=== PATIENT | male | born 1970 | race Caucasian/White ===

== ENCOUNTER 2020-02-17 14:11 | Emergency (ER) | payer OTHER, SELFPAY ==
[2020-02-17 14:15] VITALS: BP 140/79; PULSE 77; TEMP 37; O2SAT 97
--- NOTE | 2020-02-17 14:25 | W.ED.GENAD ---
Discharge Plan Disposition Patient Disposition: HOME Condition: Stable Discharge Details Chief Complaint: Laceration Clinical Impression: Laceration of thumb, right Primary Care Provider: Carlos Chavez ED Provider: Geneva Castillo Home Meds and New Rx's Prescriptions: Continued ibuprofen 800 mg tablet 800 mg PO TID PRNRF: 0 naproxen 500 mg tablet 500 mg PO BID Qty: 30 RF: 0 acetaminophen [Acetaminophen Extra Strength] 500 MG tablet 1,000 mg PO TID PRN PRNQty: 120 RF: 0 Discharge Instructions Instructions: Laceration (ED) Additional Instructions: Sutures removed in 5 to 7 days. Watch for signs of infection including redness, swelling, red streaks or drainage. Return immediately if any signs of infection. Leave dressing in place for 12 to 24 hours, you may wash under running soap and water tomorrow. No soaking. Allow to air dry at least 1 to 2 hours a day. Keep clean and dry. Follow up with primary care provider in 3-5 days. Return to ED sooner if any worsening or concerns. Increase oral fluids. Please take Tylenol or Ibuprofen with food every 4-6 hours as needed for pain and swelling. Referrals: Carlos Chavez, [Primary Care Provider] - Medical Decision Making <Geneva Castillo - Last Filed: 02/17/20 16:21> 49-year-old male presents with right thumb laceration approximately 2 cm in size. This occurred approximately 30 minutes prior to arrival on a sawzall. Eating is controlled with pressure, patient has full range of motion noted to his thumb. Intact two-point discrimination. Last tetanus was 2013. Imaging obtained to rule out foreign body and fracture. No fracture or foreign body seen on imaging. Wound was extensively irrigated and soaked in chlorhexidine and sterile normal saline. Laceration was repaired as noted in procedure note above, anesthesia achieved with infiltration of 1% lidocaine without epi. Wound was repaired with 3 simple interrupted four-point 0 sutures, wound well approximated. Patient discussed home care and suture removal, verbalized understanding. Given strict return instructions to return if any signs of infection or concerns. Bacitracin applied and Band-Aid prior to discharge. <Mark Gage MD - Last Filed: 02/17/20 15:05> Patient seen, examined, and discussed with KAMILA Castillo. I agree with treatment plan as discussed/documented. HPI <Geneva Castillo - Last Filed: 02/17/20 16:21> General Mode of arrival: ambulatory. Date/Time Provider Initiated Documentation: 02/17/20 14:16. Limitations to Documentation: no limitations. Information obtained by: patient. HPI Narrative: 49-year-old male presents the right thumb laceration which was sustained prior to arrival with a sawzall. Patient has full range of motion noted to his digit. Intact two-point discrimination. Last tetanus shot was 2012. Laceration is approximately 2 cm in length and is jagged. Related Data Home Medications Medication Instructions Recorded Confirmed acetaminophen [Acetaminophen Extra 1,000 mg PO TID PRN PRN #120 tab 08/03/17 02/17/20 Strength] ibuprofen 800 mg tablet 800 mg PO TID PRN tab-cap 03/31/19 02/17/20 naproxen 500 mg tablet 500 mg PO BID #30 tab 05/09/19 02/17/20 Previous Rx's Medication Instructions Recorded acetaminophen [Acetaminophen Extra 1,000 mg PO TID PRN PRN #120 tab 08/03/17 Strength] naproxen 500 mg tablet 500 mg PO BID #30 tab 05/09/19 Allergies Allergy/AdvReac Type Severity Reaction Status Date / Time No Known Allergies Allergy Verified 02/17/20 14:18 General Stated Complaint: Laceration JOSS: 3 Review of Systems <Geneva Castillo - Last Filed: 02/17/20 16:21> Narrative: Constitutional: Negative for weight loss, alert and oriented, well groomed, normal body habitus, appears comfortable. HEENT: Denies trauma, headaches, blurry vision, nasal discharge, sore throat, trouble swallowing. Chest: Denies chest pain, palpitations, irregular rhythm, hypertension. Respiratory: Denies Shortness of breath, cough, hemoptysis. Skin: Laceration noted to the right thumb. Neuro: Denies dizziness, blurry vision, weakness, syncope, headache or facial numbness. Hematologic: Denies easy bruising, intolerance to heat or cold, hair loss. PFSH <Geneva Castillo - Last Filed: 02/17/20 16:21> Family History Mother No problems noted. Father No problems noted. Sister No problems noted. Brother No problems noted. Grandfather No problems noted. Grandfather No problems noted. Grandmother No problems noted. Grandmother Stroke Social History Smoking/Tobacco Use Status: Former Tobacco Use Alcohol Intake: current Alcohol Intake frequency: a few times a week Alcohol type: beer Drug use: Never Substance use type: does not use Do you feel safe at home: Yes Do you feel safe in your relationship?: Yes Exam <Geneva Castillo - Last Filed: 02/17/20 16:21> Narrative Exam Narrative: Constitutional: Alert and oriented x3. Appears stated age. Normal body habitus. Head: Normocephalic, no trauma. Chest: RRR, Normal S1, S2, distal pulses intact. Resp: Lungs clear to auscultation bilaterally, no wheezes, rales, or rhonchi. Musculoskeletal: Normal gait, 5/5 strength to all four extremities. Skin: No suspicious rashes or lesions. Capillary refill less than 2 sec. laceration noted to the palmar surface of the right thumb. Measures approximately 2 cm in length, edges are jagged. Full range of motion noted to thumb intact two-point discrimination noted. Course <Geneva Castillo - [facility] Filed: 02/17/20 16:21> Vital Signs Vital signs: Vital Signs Temperature 37.0 C 02/17/20 14:15 Pulse 77 02/17/20 14:15 Blood Pressure 140/79 02/17/20 14:15 Pulse Oximetry 97 02/17/20 14:15 Temperature 37.0 C 02/17/20 14:15 Temperature Source Temporal Artery Scan 02/17/20 14:15 Pulse 77 02/17/20 14:15 Respiratory Effort Non-Labored 02/17/20 14:17 Blood Pressure 140/79 02/17/20 14:15 Blood Pressure Position Sitting 02/17/20 14:15 Pulse Oximetry 97 02/17/20 14:15 Oxygen Delivery Method Room Air 02/17/20 14:15 Oxygen Flow Rate 0 02/17/20 14:15 Pain Level 3 02/17/20 14:22 Procedures <Geneva Castillo - [facility] Filed: 02/17/20 16:21> Laceration Laceration 1: Site: hand (thumb) Side (If applicable): right Size (cm): 2 Description: linear and irregular Depth: simple, single layer Local Anesthetic: Lidocaine 1% Amount of anesthesia used (mL): 1 Pre-repair: wound explored, irrigated extensively and deep structures intact Skin layer closed with: nylon Size (cm): 4-0 Number of sutures: 3 Technique: simple, interrupted
--- NOTE | 2020-02-17 14:35 | DI.RAD_ITS ---
EXAM: XR THUMB RT CLINICAL HISTORY: laceration. TECHNIQUE: 2D digital imaging was performed. COMPARISON: No exams were available for comparison FINDINGS: BONES: No definite acute fracture is identified. No bony destructive lesion is seen. JOINTS: No dislocation present. Mild hypertrophic changes are seen the metacarpophalangeal joint. SOFT TISSUE: No radiopaque foreign bodies are identified. IMPRESSION: No acute abnormality. DATA REPOSITORY: RADIATION DOSE DELIVERED:
[2020-02-17] MEDS: Lidocaine 1% Multi-Dose 50 ML VIAL IJ (14:56)
== END 2020-02-17 15:13 | disposition home or self-care (01) ==
LOC: ER 15:14
PROVIDERS: Emergency Provider Registered Nurse Emergency; PCP Emergency Medicine
DX: S61.011A Laceration without foreign body of right thumb without damage to nail, initial encounter (principal); W27.0XXA Contact with workbench tool, initial encounter
CPT/HCPCS: 12001; 73140

== ENCOUNTER 2021-07-20 01:19 | Outpatient (CLI) | payer OTHER, SELFPAY ==
--- NOTE | 2021-07-20 07:30 | DI.RAD_ITS ---
Exam(s) XR KNEE LT 3V AP,LAT,JOB EXAM: XR KNEE LT 3V AP,LAT,JOB CLINICAL HISTORY: knee pain,M25.562,M25.561,M25.569. TECHNIQUE: 2D digital imaging was performed of the left knee. Three images were obtained. AP, late ral and PA tunnel views were obtained. COMPARISON: CR XR KNEE RT 3V AP,LAT,JOB from 07/20/2021 FINDINGS: BONES: No acute fracture is present. No bony destructive lesion is seen. JOINTS: The knee is normally aligned. No joint effusion is seen. There is mild narrowing of the femor al tibial joint. Chondrocalcinosis is present. Periarticular spurring is seen in all 3 joint compar tments. SOFT TISSUE: Normal. IMPRESSION: Mild degenerative changes of the left knee. DATA REPOSITORY: RADIATION DOSE DELIVERED:
--- NOTE | 2021-07-20 07:30 | DI.RAD_ITS ---
Exam(s) XR KNEE RT 3V AP,LAT,JOB EXAM: XR KNEE RT 3V AP,LAT,JOB CLINICAL HISTORY: knee pain,M25.562,M25.561,M25.569. TECHNIQUE: 2D digital imaging was performed of the right knee. Three views obtained. AP, lateral an d PA tunnel views were obtained. COMPARISON: No exams were available for comparison FINDINGS: BONES: No acute fracture is present. No bony destructive lesion is seen. JOINTS: The knee is normally aligned. Small joint effusion. Chondrocalcinosis in the femoral tibial joints. Mild spurring of the posterior patella. SOFT TISSUE: Normal. IMPRESSION: Mild degenerative changes of the right knee. DATA REPOSITORY: RADIATION DOSE DELIVERED:
== END 2021-07-20 01:39 ==
PROVIDERS: PCP Emergency Medicine; Visit Provider Emergency Medicine
DX: M25.561 Pain in right knee (principal); M25.562 Pain in left knee; M17.0 Bilateral primary osteoarthritis of knee; G89.29 Other chronic pain; M25.461 Effusion, right knee
CPT/HCPCS: 73562

== ENCOUNTER 2022-04-10 07:33 | Day surgery (SDC) | payer OTHER, SELFPAY ==
--- NOTE | 2022-04-09 18:53 | W.ANESPRE ---
General Info Date of Service Date Performed: 04/10/22 Height: 6 ft 3 in Weight: 99.847 kg Body Mass Index (BMI): 27.5 Surgical Procedure: Operation Date: 04/10/22 09:05 Proposed Procedure Side Surgeon p Colonoscopy Brandy Willingham MD Meds Allergies and Home Medications Allergies Allergy/AdvReac Type Severity Reaction Status Date / Time No Known Allergies Allergy Verified 04/10/22 08:03 Home Medication Medication Instructions Recorded ibuprofen 800 mg tablet 800 mg PO Q8H #14 tabs 07/12/21 bisacodyl 5 mg tablet,delayed 5 mg PO ONCE #4 tabs 03/16/22 release (Dulcolax (bisacodyl)) polyethylene glycol 3350 17 17 g PO ONCE #238 grams 03/16/22 gram/dose oral powder Current Visit Medications: Current Medications Generic Name Dose Route Start Last Admin Trade Name Freq PRN Reason Stop Dose Admin Ringer's Solution 1,000 mls @ 80 mls/hr 04/10/22 06:00 IV 05/07/22 23:59 INFUSION JOSE IV Miscellaneous Supplies 1 each 04/10/22 06:00 Iv Access IV 05/07/22 23:59 DIRECTED JOSE Sodium Chloride 0 ml 04/10/22 06:00 Normal Saline Flush 10 Ml Syr IV 05/07/22 23:59 PRN PRN Sodium Chloride 0 ml 04/10/22 06:00 Normal Saline 10 Ml Vial IJ 05/07/22 23:59 DIRECTED PRN Sterile Water 0 ml 04/10/22 06:00 Water,Injection,Sterile 10 Ml Vial IJ 05/07/22 23:59 DIRECTED PRN PFSH Active Problems Active Problems: Problem Status Onset Code Screening for colon cancer Z12.11 Weight loss R63.4 Medical History Medical History Acute lateral meniscus tear of left knee (07/30/17) Bilateral chronic knee pain Bronchospasm Chondrocalcinosis of left knee Chondrocalcinosis of right knee Degenerative joint disease of right knee History of rectal fissure Left knee DJD Migraine headache Spasm of muscle of lower back Tinea versicolor Surgical History Surgical History History of dental surgery Hx of knee surgery Hx of shoulder surgery right Hx of thumb surgery Right Tobacco Smoking/Tobacco Use Status: Former Tobacco Use Passive smoking exposure: Yes Second hand exposure: Yes Alcohol Alcohol Intake: current Alcohol intake frequency: a few times a month Alcohol type: beer Substance Use Substance use: Never Substance use type: does not use Vital Signs and Lab Results Vital Signs Most Recent Vital Signs in EMR: Temp Pulse Resp BP Pulse Ox 36.2 C L 60 16 122/85 100 04/10/22 08:11 04/10/22 08:11 04/10/22 08:11 04/10/22 08:11 04/10/22 08:11 Lab Results Blood Type / Crossmatch: No Data to Display Complete Blood Count: No Data to Display Complete Metabolic Panel: No Data to Display Liver Function Panel: No Data to Display Coagulation Panel: No Data to Display Cardiac Panel: No Data to Display Arterial Blood Gas: No Data to Display Venous Blood Gas: No Data to Display Pancreas Panel: No Data to Display Thyroid Panel: No Data to Display Infectious Disease: No Data to Display Blood Cultures: No Data to Display Toxicology Panel: No Data to Display Anesthesia Assessment and Plan Anesthesia History Personal History: No History of Anesthesia Complications Family History: No Family History of Anesthesia Complications Exercise Tolerance Exercise Tolerance: Metabolic Equivalents>4 Cardiac & Pulmonary Exam Cardiac Exam: Normal S1/S2 Heart Sounds Pulmonary Exam: Clear Bilateral Breath Sounds Implantable Cardiac Device Does patient have a Pacemaker or an ICD?: No Airway Exam Known Difficult Airway: No Mallampati Class: 2 Mouth Opening: Normal (> 3cm) Thyromental Distance: Greater than 3 cm Neck Range of Motion: Full ROM Neck Circumference: Normal Teeth Condition: Normal Dentition ASA Classification ASA Score: ASA 2 Emergency Case?: No NPO Status NPO Status: NPO Clears >2 hours, Solids >8 hours Anesthesia Plan Resuscitation Status: Full Code Anesthesia Technique: General Anesthesia Airway Planned: Natural Airway Monitors Used: Standard Monitors Preoperative Comments:: 51 yo male for colo. Sig PMHx: former smoker, migraines. Previous Anes: LMA 5.
--- NOTE | 2022-04-10 06:20 | W.COLOREPORT ---
Colonoscopy Report Date of procedure: 04/10/22 Pre-op diagnosis general: Colon Cancer Screening Post-op diagnosis procedure note: other (one polyp) Procedure: Colonoscopy with polypectomy Surgeon: Brandy Willingham Anesthesia Type: General:No Airway Estimated blood loss (mL): 2 Pathology: other (transverse polyp) Complications: None Disposition: same day Indications: The patient is here for Colonoscopy pre-op. He has no family history of colon cancer. He has not had any bowel habit changes. -Discussed colonoscopy bowel prep as well as the procedure. Discussed possible complications of the procedure to include bleeding, pain, perforation, missed small lesion/polyp, sore throat, aspiration and adverse reaction to the medications. Questions were answered to patient?s satisfaction. No guarantees were implied or given.? Prep: Miralax/Dulcolax Procedure Start Time: :02 Procedure End Time: :18 Retraction Time: 8 minutes Findings: One small polyp Procedure Description: After informed consent was obtained the patient was taken to the procedure room and placed in a left decubitous position. Monitors were applied and a time out was done. The patients name, date of , procedure, allergies to medications and metal in their body was reviewed. The patient was then sedated. Once sedated and comfortable a rectal exam was done. External exam was normal. Internal exam revealed a normal sphincter tone and no palpable masses. The prostate felt smooth and slightly enlarged. The scope was then introduced and retro-flexed. No internal hemorrhoids, polyps or masses were identified on retro-flexion. The scope was then advanced to the cecum without difficulty. The ileocecal vlave and appendiceal orifice were identified. The prep was adequate. The scope was then slowly retracted over 8 minutes back into the rectum. Polyps were removed with cold forceps in the Transverse colon. There was no diverticulosis noted. The scope was removed and the patient was woken up and taken back to Same day surgery in stable condition. The patient tolerated the procedure well and there were no immediate complications. Follow up: The patient should follow up in 5 years unless they develop changes in bowel habits or other new gastrointestinal complaints.
--- NOTE | 2022-04-10 06:21 | W.PM.DSUDISC ---
Discharge Plan Disposition Patient Disposition: HOME Condition: Good Discharge Details Reason For Visit: colon cancer screening Attending Provider: Brandy Willingham Primary Care Provider: Ta Paulino Home Meds and New Rx's Prescriptions: Continued ibuprofen 800 mg tablet 800 mg PO Q8H Qty: 14 2RF Rx Instructions: Take 1 tablet at onset of migraine headache. Discontinued bisacodyl [Dulcolax (bisacodyl)] 5 mg tablet,delayed release (DR/EC) 5 mg PO ONCE Qty: 4 0RF Rx Instructions: Take according to provider's instructions for colonoscopy prep. polyethylene glycol 3350 17 gram/dose powder 17 g PO ONCE Qty: 238 0RF Rx Instructions: To be taken as directed by prescriber's office for colonoscopy prep. Discharge Instructions Instructions: Colorectal Polyps (DC) Additional Instructions: Findings: One polyp Follow up: 5 years Please call if you develop: fevers >101.5 Nausea or Vomiting Abdominal pain that is not transient Rectal bleeding that is more then a tbsp A hard abdomen and inability to pass gas DAY SURGERY UNIT POST ENDOSCOPY INSTRUCTIONS Instructions for everyone who is given Anesthesia: For your safety, please do the following for the next 24 Hours: a. Do not drive or operate dangerous equipment b. Do not drink alcohol beverages or use any recreational drugs for the first 24 hours or while taking pain medications. The medications in your body may have a reaction that can be dangerous. c. Do not make any important decisions or sign any important papers 1. Generally there are no restrictions on your activity after a day or so has gone by, but you may feel a bit fatigued for a few days. 2. After you arrive home you may have a light meal and return to a normal diet as you can tolerate it without feeling sick to your stomach. 3. After surgery, you may feel pain or discomfort. This should be only transient, but if it persists please contact your doctor. 4. If there are any questions regarding the findings of your procedure, please feel free to contact your doctor. 6. If you are unable to contact your doctor with a problem, contact the hospital at [phone]. 7. Continue all your regular medications unless directed otherwise. I understand the above instructions and have no questions. Signature of Patient or Responsible Adult Escort Date/Time Name of Responsible Adult Escort Signature of Nurse Date/Time Activity:: Activity as Tolerated Diet:: As Tolerated Discharge Orders Discharge Orders: Discharge Order (Routine); Ordered 04/10/22 Ordered By: Brandy Willingham
[2022-04-10 08:11] VITALS: BP 122/85; PULSE 60; RESP 16; TEMP 36.2; O2SAT 100
[2022-04-10 08:23] VITALS: BMI 27.5
[2022-04-10] MEDS: Lactated Ringers 1,000 ML 80 ML IV (08:30)
--- NOTE | 2022-04-10 09:14 | BOWEL_PTH ---
PATIENT: James Balderrama JR LOC: [facility] U#:[id number] AGE/SX: 51/M ROOM: RE04/10/[address]: Brandy Willingham MD : 1970 BED: DIS: 04/10/2022 SPEC #: [id number] RECD: 04/10/22 10:43 STATUS: MARY JANE REQ #: [id number] PAULINA: 04/10/22 09:[address]: Brandy Willingham DEPT: Surgical Specimen RECD BY: Kassie Herrera ENTERED: 04/10/22 10:44 SP TYPE: Bowel OTHR DR: Ta Paulino, KAMILA Tissues: 1 - BIOPSY BOWEL Procedures: GROSS AND MICRO LEVEL 4 Comments: [id number]
[2022-04-10 09:25] VITALS: BP 98/66; PULSE 53; RESP 15; TEMP 36.6; O2SAT 98
--- NOTE | 2022-04-10 09:32 | W.ANESPOSTOP ---
Postoperative Evaluation Date, Time and Location Date Performed: 04/10/22 Time Performed: 09:33 Patient Location: Day Surgery Unit Vital Signs Most Recent Imported Vital Signs: Most Recent Vital Signs Temp Pulse Resp BP Pulse Ox 36.6 C 53 L 15 98/66 L 98 04/10/22 09:25 04/10/22 09:25 04/10/22 09:25 04/10/22 09:25 04/10/22 09:25 Pain Score Most Recent Pain Score: Most Recent Pain Score Pain Level 0 04/10/22 08:11 Assessment Mental Status: Awake (Alert & Oriented to Patient Baseline) Airway and Respiratory Function: Patent airway with normal (patient baseline) respiratory exam Cardiovascular Function: Hemodynamically Stable Hydration Status: Adequately Hydrated Nausea & Vomiting: No Nausea or Vomiting Pain: Pt. Denies Any Pain Peripheral Nerve Block: Patient did not receive a nerve block
[2022-04-10 09:54] VITALS: BP 117/87; PULSE 59; RESP 16; TEMP 36.2; O2SAT 99
== END 2022-04-10 10:24 | disposition home or self-care (01) ==
PROVIDERS: PCP Nurse Practitioner Family; Visit Provider Surgery
PROC: 0DJD8ZZ Inspection of Lower Intestinal Tract, Via Natural or Artificial Opening Endoscopic (ICD-10-PCS; CPT 45378; principal; 2022-04-10 09:00)
DX: Z12.11 Encounter for screening for malignant neoplasm of colon (principal); K63.5 Polyp of colon
CPT/HCPCS: 45380; 88305

== ENCOUNTER → 2023-10-15 16:02 | Outpatient (CLI) | payer OTHER, SELFPAY ==
--- NOTE | 2023-10-15 12:34 | DI.RAD_ITS ---
Exam(s) XR TOE RT GREAT EXAM: XR TOE RT GREAT CLINICAL HISTORY: ? fracture, rt toe pain, M79.674. TECHNIQUE: 2D digital imaging was performed. COMPARISON: CR from 07/15/2017 FINDINGS: BONES: No acute fracture is present. No bony destructive lesion is seen. JOINTS: No dislocation present. Minimal degenerative changes 1st MTP joint SOFT TISSUE: Normal. IMPRESSION: No evidence of acute fracture, dislocation, or subluxation. DATA REPOSITORY: RADIATION DOSE DELIVERED:
== END ==
PROVIDERS: PCP Nurse Practitioner Family; Visit Provider Family Medicine
DX: M79.674 Pain in right toe(s) (principal)
CPT/HCPCS: 73660

== ENCOUNTER 2023-10-15 16:30 | Outpatient (CLI) | payer OTHER, SELFPAY ==
[2023-10-15 13:33] LABS: Calculated LDL 129 mg/dL (<100); Cholesterol 193 mg/dL (<200); HDL Cholesterol 53 mg/dL (40-60); Triglyceride 57 mg/dL (<150)
== END 2023-10-15 16:31 | disposition home or self-care (01) ==
LOC: LBO 16:30
PROVIDERS: PCP Nurse Practitioner Family; Visit Provider Family Medicine
DX: Z13.220 Encounter for screening for lipoid disorders (principal); Z13.1 Encounter for screening for diabetes mellitus
CPT/HCPCS: 36415; 80061; 83036

== ENCOUNTER 2024-11-06 14:31 | Outpatient (CLI) | payer OTHER, SELFPAY ==
--- NOTE | 2024-11-06 08:45 | DI.RAD_ITS ---
Exam(s) XR KNEE LT 4V AP,LAT,JOB,PAT EXAM: XR KNEE LT 4V AP,LAT,JOB,PAT CLINICAL HISTORY: knee pain. TECHNIQUE: 2D digital imaging was performed. Three views. COMPARISON: CR XR KNEE LT 3V AP,LAT,JOB from 07/20/2021 FINDINGS: BONES: No acute fracture is present. No bony destructive lesion is seen. Spurring from the femoral condyles and tibial plateaus. Spurring at the articular aspect of the patella. Spurring at the fem oral intercondylar notch and tibial spines. JOINTS: The knee is normally aligned. No joint effusion is seen. Mild narrowing of the medial femoral tibial joint. SOFT TISSUE: Normal. IMPRESSION: [id number] degenerative changes. DATA REPOSITORY: RADIATION DOSE DELIVERED:
--- NOTE | 2024-11-06 08:45 | DI.RAD_ITS ---
Exam(s) XR KNEE RT 4V AP,LAT,JOB,PAT EXAM: XR KNEE RT 4V AP,LAT,JOB,PAT CLINICAL HISTORY: knee pain. TECHNIQUE: 2D digital imaging was performed. Three views. COMPARISON: CR XR KNEE RT 3V AP,LAT,JOB from 07/20/2021 FINDINGS: BONES: No acute fracture is present. No bony destructive lesion is seen. Mild spurring from the fem oral condyles and tibial plateaus, increasing from prior exam. Mild spurring at the tibial spines. JOINTS: The knee is normally aligned. The joint spaces are maintained. No joint effusion is seen. Chondrocalcinosis. Mild to moderate spurring at the articular aspect of the patella. SOFT TISSUE: Normal. IMPRESSION: Mild degenerative changes and chondrocalcinosis. DATA REPOSITORY: RADIATION DOSE DELIVERED:
== END 2024-11-06 14:32 | disposition home or self-care (01) ==
LOC: DIORS 14:33
PROVIDERS: PCP Nurse Practitioner Family; Visit Provider Physician Assistant
DX: M17.0 Bilateral primary osteoarthritis of knee (principal)
CPT/HCPCS: 73564

== ENCOUNTER 2025-03-30 02:07 | Outpatient (CLI) | payer OTHER, SELFPAY ==
[2025-03-30 11:03] LABS: HCT 45.9 % (40.0-50.0); HGB 15.1 g/dL (13.5-17.5); MCHC 32.9 % (32.0-36.0); MCV 91 fL (80-95); MPV 10.9 fL (8.0-11.0); Platelet Count 156 10^3/uL (130-400); RBC 5.03 10^6/uL (4.36-5.78); RDW 12.2 % (11.8-14.1); RDW-SD 40.4 fL; WBC 4.29 10^3/uL (4.4-10.8)
[2025-03-30 11:26] LABS: Anion Gap 8.4 mmol/L (3-11); BUN 15 mg/dL (7-18); CO2 29.6 mmol/L (21.0-32.0); Chloride 104 mmol/L (98-107); Estimated GFR 89.44 (mL/min/1.73m2); Glucose 78 mg/dL (74-106); Potassium 4.2 mmol/L (3.5-5.1); Sodium 142 mmol/L (136-145)
== END 2025-03-30 02:08 | disposition home or self-care (01) ==
LOC: LBO 02:07 → LBN 10:52
PROVIDERS: PCP Nurse Practitioner Family; Visit Provider Student in an Organized Health Care Education/Training Program
DX: M17.0 Bilateral primary osteoarthritis of knee (principal); Z01.818 Encounter for other preprocedural examination
CPT/HCPCS: 80048; 85027

== ENCOUNTER 2025-03-30 09:58 | Outpatient (CLI) | payer OTHER, SELFPAY ==
--- NOTE | 2025-03-30 09:15 | DI.RAD_ITS ---
Exam(s) XR STANDING ALIGNMENT EXAM: XR STANDING ALIGNMENT CLINICAL HISTORY: PRE OP BILAT TKAs. TECHNIQUE: 2D digital imaging was performed. Standing AP views were performed from the pelvis through the ankles. COMPARISON: CR XR KNEE LT 4V AP,LAT,JOB,PAT from 11/06/2024 CR XR KNEE RT 4V AP,LAT,JOB,PAT from 11/06/2024 FINDINGS: BONES: No acute fracture is present. No bony destructive lesion is seen. Leg length discrepancy: No significant overall leg length discrepancy. JOINTS: Knees: Degenerative changes of both knees with periarticular spurring throughout. The ankle joints are unremarkable. The hip joints are unremarkable. SOFT TISSUE: Normal. IMPRESSION: Degenerative changes both knee. No significant leg length discrepancy. DATA REPOSITORY: RADIATION DOSE DELIVERED:
== END 2025-03-30 09:59 | disposition home or self-care (01) ==
LOC: DIORS 09:59
PROVIDERS: PCP Nurse Practitioner Family; Visit Provider Student in an Organized Health Care Education/Training Program
DX: M17.0 Bilateral primary osteoarthritis of knee (principal)
CPT/HCPCS: 77073

== ENCOUNTER 2025-04-08 06:01 | Day surgery (SDC) | payer SELFPAY ==
[2025-04-08] VITALS (23 sets, daily range): BP systolic 81–135; BP diastolic 46–98; PULSE 50–95; RESP 10–24; TEMP 36.2–36.6; O2SAT 97–100; BMI 29.1
--- NOTE | 2025-04-08 06:29 | ANES.PREOP_ITS ---
General Info Date of Service Date Performed: 04/08/25 Height: 6 ft 3 in Weight: 105.7 kg Body Mass Index (BMI): 29.1 Surgical Procedure: Operation Date: 04/08/25 07:50 Proposed Procedure Side Surgeon p Knee Total Arthroplasty Bilateral Bilateral Patricio Jeff MD Meds Allergies and Home Medications Allergies Allergy/AdvReac Type Severity Reaction Status Date / Time No Known Allergies Allergy Verified 04/08/25 06:29 Home Medication ?Medication ?Instructions ?Recorded meloxicam 15 mg tablet 15 mg PO DAILY #90 tabs 03/01 11/25 Current Visit Medications: Current Medications Generic Name Dose Route Start Last Admin Trade Name Freq PRN Reason Stop Dose Admin Acetaminophen 1,000 mg 04/08/25 06:00 Acetaminophen 500 Mg Tab PO 04/08/25 23:59 PREOP JOSE Celecoxib 400 mg 04/08/25 06:00 Celecoxib 200 Mg Cap PO 04/08/25 23:59 PREOP JOSE Gabapentin 300 mg 04/08/25 06:00 Gabapentin 300 Mg Cap PO 04/08/25 23:59 PREOP JOSE Ringer's Solution 1,000 mls @ 80 mls/hr 04/08/25 06:00 IV 04/08/25 23:59 INFUSION JOSE Cefazolin Sodium/Dextrose 2 gm in 50 mls @ 100 mls/hr 04/08/25 06:00 Ancef Duplex IVPB 04/08/25 23:59 PREOP JOSE Tranexamic Acid/Sodium Chloride 1,000 mg in 100 mls @ 600 mls/hr 04/08/25 06:00 IVPB 04/08/25 23:59 PREOP JOSE Tranexamic Acid/Sodium Chloride 1,000 mg in 100 mls @ 600 mls/hr 04/08/25 06:00 IVPB 04/08/25 23:59 DIRECTED JOSE IV Miscellaneous Supplies 1 each 04/08/25 06:00 Iv Access IV 04/08/25 23:59 DIRECTED JOSE Sodium Chloride 0 ml 04/08/25 06:00 Normal Saline Flush 10 Ml Syr IV 04/08/25 23:59 PRN PRN Sodium Chloride 0 ml 04/08/25 06:00 Normal Saline 10 Ml Vial IJ 04/08/25 23:59 DIRECTED PRN Sterile Water 0 ml 04/08/25 06:00 Water,Injection,Sterile 10 Ml Vial IJ 04/08/25 23:59 DIRECTED PRN PFSH Active Problems Active Problems: Problem Status Onset Code Toe pain, right Acute M79.674 Osteoarthritis of both knees Chronic M17.0 Migraine headache Chronic G43.909 Bilateral chronic knee pain Acute M25.561, M25.562, G89.29 Tubular adenoma of colon Acute D12.6 Medical History Medical History History of rectal fissure Chondrocalcinosis of left knee Chondrocalcinosis of right knee Degenerative joint disease of right knee Left knee DJD Tinea versicolor Bronchospasm Spasm of muscle of lower back Acute lateral meniscus tear of left knee (07/30/17) Surgical History Surgical History History of colonoscopy (~03/2022) History of dental surgery Hx of shoulder surgery right Hx of knee surgery Hx of thumb surgery Right Tobacco Smoking/Tobacco Use Status: Former Tobacco Use Passive smoking exposure: Yes Second hand exposure: Yes Alcohol Alcohol Intake: current Alcohol intake frequency: holidays/special occasions only Alcohol type: beer Substance Use Substance use: Never Substance use type: does not use Details: alcohol: t-5 Vital Signs and Lab Results Vital Signs Most Recent Vital Signs in EMR: Most Recent Vital Signs Temp Pulse Resp BP Pulse Ox 36.5 C 69 18 123/90 98 04/08/25 06:00 04/08/25 06:00 04/08/25 06:00 04/08/25 06:00 04/08/25 06:00 Lab Results Complete Blood Count: WBC, (4.4-10.8) 4.29 10^3/uL L 03/30/25, 10:25 RBC, (4.36-5.78) 5.03 10^6/uL 03/30/25, 10:25 Hgb, (13.5-17.5) 15.1 g/dL 03/30/25, 10:25 Hct, (40.0-50.0) 45.9 % 03/30/25, 10:25 Plt Count, (130-400) 156 10^3/uL 03/30/25, 10:25 Complete Metabolic Panel: Sodium, (136-145) 142 mmol/L 03/30/25, 10:25 Potassium, (3.5-5.1) 4.2 mmol/L 03/30/25, 10:25 Chloride, (98-107) 104 mmol/L 03/30/25, 10:25 Carbon Dioxide, (21.0-32.0) 29.6 mmol/L 03/30/25, 10 :25 BUN, (7-18) 15 mg/dL 03/30/25, 10:25 Creatinine, (0.70-1.30) 1.0 mg/dL 03/30/25, 10:25 Est GFR (CKD-EPI 2020), (mL/min/1.73m2) 89.44 03/30/25, 10:25 Calcium, (8.5-10.1) 9.0 mg/dL 03/30/25, 10:25 Glucose, (74-106) 78 mg/dL 03/30/25, 10:25 Anesthesia Assessment and Plan Anesthesia History Personal History: No History of Anesthesia Complications Family History: No Family History of Anesthesia Complications Exercise Tolerance Exercise Tolerance: Metabolic Equivalents>4 Pertinent Negatives Pertinent Negatives: No Symptoms of GERD Cardiac & Pulmonary Exam Cardiac Exam: Normal S1/S2 Heart Sounds Pulmonary Exam: Clear Bilateral Breath Sounds Implantable Cardiac Device Does patient have a Pacemaker or an ICD?: No Airway Exam Known Difficult Airway: No Mallampati Class: 2 Mouth Opening: Normal (> 3cm) Thyromental Distance: Greater than 3 cm Neck Range of Motion: Full ROM Neck Circumference: Normal Teeth Condition: Normal Dentition ASA Classification ASA Score: ASA 2 Emergency Case?: No NPO Status NPO Status: NPO Clears >2 hours, Solids >8 hours Anesthesia Plan Resuscitation Status: Full Code Anesthesia Technique: Spinal Anesthesia Airway Planned: Natural Airway Pain Management: Surgeon and patient request nerve block Monitors Used: Standard Monitors
[2025-04-08] MEDS: Gabapentin 300 MG CAP PO (06:34)
[2025-04-08] MEDS: Acetaminophen 500 MG TAB 1000 MG PO (06:34)
[2025-04-08] MEDS: Celecoxib 200 MG CAP 400 MG PO (06:35)
[2025-04-08] MEDS: Lactated Ringers 1,000 ML 80 ML IV (06:47)
--- NOTE | 2025-04-08 07:16 | PDOC.DSDIS_ITS ---
Date of service: 04/08/25 Discharge Plan Disposition Patient Disposition: Home Condition: Good Discharge Details Reason For Visit: B/L TKR Attending Provider: Patricio Jeff Primary Care Provider: Ta Paulino Home Meds and New Rx's Prescriptions: New meloxicam 15 mg tablet 15 mg PO DAILY Qty: 30 2RF aspirin 81 mg tablet,delayed release (DR/EC) 81 mg PO BID Qty: 60 0RF acetaminophen 500 mg tablet 1,000 mg PO TID Qty: 90 3RF pantoprazole 40 mg tablet,delayed release (DR/EC) 40 mg PO DAILY Qty: 14 0RF dexamethasone 4 mg tablet 4 mg PO DAILY Qty: 2 0RF docusate sodium 100 mg capsule 100 mg PO BID PRNQty: 28 0RF gabapentin 300 mg capsule 300 mg PO QHS Qty: 14 0RF oxycodone 5 mg tablet 5 mg PO Q4H PRNQty: 18 0RF Continued meloxicam 15 mg tablet 15 mg PO DAILY Qty: 90 2RF Rx Instructions: Take one tablet daily for inflammation and pain Discharge Instructions Additional Instructions: Total Knee Discharge Instructions Activity: The most important activity is to walk and to work on gentle motion (both flexion and extension). You should try to take short walks a few times a day. It is important that when resting you work on keeping the knee straight. Avoid putting a pillow behind the knee as this will encourage flexion. Work on range of motion exercises as provided by Physical Therapy. - Start outpatient physical therapy within 2 weeks. - You should wear the LOUIE hose on both legs for 2 weeks. You may remove these at night. You may also use any compression sock in place of the LOUIE hose. - Utilize [employer] to review exercises, see videos on exercises and obtain basic information pertaining to your surgery and your recovery. Dressing: Remove the Brando wrap by 2 days after your surgery and put on the LOUIE stocking given to you from the hospital. Keep the surgical dressing (underneath the BRANDO wrap) in place for at least one week. After the first week it may be removed and replaced with light gauze and tape or nothing. The wound and dressing may get wet after 3 days but avoid soaking the dressing or otherwise it will need to be changed. Many people prefer covering the dressing with cling wrap (saran wrap) to minimize it from getting soaked. If it gets wet, just pat dry. If it starts to peel off then it will need to be changed. Medications: - You should take Tylenol and anti-inflammatory meloxicam as your primary pain control medications. - You have been prescribed a stronger pain medication Oxycodone for breakthrough pain, take as needed as prescribed. - You have also been prescribed a stomach acid reduction agent Pantoprozole to help reduce stomach acid and reflux. - You have been prescribed Gabapentin to take at night for restlessness and nerve pain. - You will be taking Aspirin 81mg twice a day for DVT prevention unless instructed otherwise. - You have also been prescribed Decadron to take to control post-operative nausea and pain. You will start this tomorrow. - If you have constipation you should take Colace or Miralax (both [id number]). It takes most people 3-4 days to have a bowel movement. Follow-up: 2 weeks If you have any acute concerns or questions, please do not hesitate to contact the office at [phone]. You may contact Dr. Jeff with any questions after hours through the hospital at [phone] or on his cell phone at [phone]. Referrals: Patricio Jeff MD [ [facility] STAFF PHYSICIAN, Orthopaedic Surgical] Equipment/Supplies: Walker Activity:: Activity as Tolerated Shower/Bathe:: 72 hours Diet:: As Tolerated Discharge Orders Discharge Orders: Discharge Order (Routine); Ordered 04/08/25 Ordered By: Wilber Swartz DS: Diagnosis Discharge Diagnosis (1) Osteoarthritis of both knees: Status: Chronic
[2025-04-08] MEDS: ceFAZolin 2 GM/50 ML BAG IVPB (07:40)
[2025-04-08] MEDS: TRANEXAMIC ACID/SOD. CHL. 1,000 MG/100 ML BAG 600 MG IVPB ×2 (08:00→09:09)
--- NOTE | 2025-04-08 08:17 | W.ANESNERVE ---
Nerve Block Single Injection Procedure Date and Time Date Performed: 04/08/25 Procedure Start: : Location Where Procedure Performed Procedure Location: Day Surgery Unit Reason Performed: Postoperative Analgesia Requesting Provider: Patricio Jeff Timeout Performed Timeout Performed: Yes Monitoring Used ECG, Blood Pressure, SpO2 and See EMR for corresponding vital signs Sterility Sterility: Hand Hygiene, Surgical Cap, Surgical Mask, Sterile Gloves, Eye Protection and Chlorhexidine Sedation Given During Procedure Sedation Given (Indicate Dose Given): Versed IV Dose:: 3mg IVP Patient Mental Status Patient Mental Status: Sedate with meaningful communication Nerve Block 1st Nerve Block: Laterality: Left Block Type: Adductor Canal Ultrasound Image Saved?: Yes Needle / Catheter Used: 100mm SonoPlex II Local Anesthetic Bolus (Indicate Dose Given): Lidocaine used for local infiltration of skin, Bupivacaine 0.25% Dose:: 0.25%/10cc (25mg) and Exparel Dose:: 1.33%/10cc (133mg) Additives (Indicate Dose Given): Epinephrine to make 1:200,000 (5mcg/ml) (Added to 0.25% Bup.) Dose:: 50mcg Ultrasound: Sterile probe cover and gel used Nerve Stimulator: Not Used Paresthesia: None Procedure Tolerated: No Complications and Patient tolerated well Procedure Outcome: Successful Performed By: Fausto Andrade 2nd Nerve Block: Laterality: Right Block Type: Adductor Canal Ultrasound Image Saved?: Yes Needle / Catheter Used: 100mm SonoPlex II Local Anesthetic Bolus (Indicate Dose Given): Lidocaine used for local infiltration of skin, Bupivacaine 0.25% Dose:: 0.25%/10cc (25mg) and Exparel Dose:: 1.33%/10cc (133mg) Additives (Indicate Dose Given): Epinephrine to make 1:200,000 (5mcg/ml) (Added to 0.25% Bup.) Dose:: 50mcg Ultrasound: Sterile probe cover and gel used Nerve Stimulator: Not Used Paresthesia: None Procedure Tolerated: No Complications and Patient tolerated well Procedure Outcome: Successful Performed By: Fausto Andrade
[2025-04-08] MEDS: fentaNYL 100 MCG/2 ML VIAL IVP (10:57)
--- NOTE | 2025-04-08 11:46 | ROE_ITS ---
Operative Note Operative Note PRE-OP DIAGNOSIS: Bilateral Knee Arthritis POST-OP DIAGNOSIS: same PROCEDURE: Bilateral Knee Arthroplasty SURGEON: Patricio Jeff HUB CUTTER APPRENTICE: Sharita Swartz ANESTHESIA TYPE: Spinal Refer to Anesthesia Record ESTIMATED BLOOD LOSS: 350 PATHOLOGY: none sent COMPLICATIONS: None Patient was transported to: PACU Patient's condition: stable Implants: LEFT: 1. Depuy Attune Cementless Cruciate Retaining Femoral Component, Size 9 2. Depuy Attune Cementless Fixed Bearing Tibial Component, Size 10 3. Depuy Attune 9x6 CR/FB Poly RIGHT: 1. Depuy Attune Cementless Cruciate Retaining Femoral Component, Size 9 2. Depuy Attune Cementless Fixed Bearing Tibial Component, Size 10 3. Depuy Attune 9x6 CR/FB Poly Indications: I have seen Yony in clinic for symptoms of knee arthritis, confirmed with radiographic findings. He has exhausted nonoperative methods and was having significant limitations in daily function and desired better function and less pain. I discussed the technical details of a knee replacement. I explained the risks of the procedure to include, but not limited to, bleeding, infection, pain, stiffness, fracture, damage to nerves and vessels, damage to muscles and tendons, loosening, need for repeat procedure, blood clot and cardiopulmonary demise. Despite these risks, he elected to proceed. Findings: There was significant arthritis throughout both knees. Procedure Description: Yony was greeted in the preoperative holding area where the correct side was identified and marked. The consent was reviewed with the patient and signed. The history and physical was updated. All questions were answered. Preoperative medications were administered: Acetaminophen 1000mg, Celebrex 400mg, and Gabapentin 300mg. An adductor canal block was then administered by the anesthesia team in the [facility]. He was taken back to the operating room. A spinal anesthestic was then administered. The patient was placed into the supine position on the operating room table. A nonsterile tourniquet was placed high onto the leg but only used for cementing. Posts were placed for positioning during the procedure. All bony prominences were well padded. Prophylactic antibiotics in the form of Cefazolin were administered. 1g of Tranxemic Acid was given intravenously within 30 minutes of incision. Both legs were then prepped with Chloraprep and draped in a standard fashion with impervious stockinette. A second prep with Chloraprep was performed prior to application of Iodine impregnated skin protection. A timeout to confirm correct identity, side and site, procedure, allergies, anesthesia, and medical concerns was performed. LEFT KNEE: With the knee in some flexion, a midline incision was made overlying the knee. Full thickness skin flaps were raised once the extensor mechanism was encountered. These were raised medially and laterally. Any bleeding was controlled with electrocautery. Once the extensor mechanism was fully exposed, a medial parapatellar arthrotomy was performed in a flexed position. All bleeding from the arthrotomy and the geniculate arteries was coagulated. A medial subperiosteal peel was performed with electrocautery to the midcoronal plane. The fat pad was removed while keeping the patellar tendon protected. The anterior distal femur synovium was removed for later visualization. The ACL and PCL were resected and the anterior horn of the lateral meniscus was transected. The knee was then flexed with the patella everted. Large osteophytes from the tibia were removed. Large osteophytes from the femur were removed. Using a step drill, and based on preoperative templating, the femoral canal was entered. This was done with a step drill without any difficulty. The intramedullary distal femoral cut guide was inserted, set to a 5 degree valgus cut and 9mm cut thickness. The distal femoral cut guide was then held in position and pinned. With the soft tissues protected, the distal cut was pe rformed. This was passed over a few times to ensure a planar cut. I then turned attention to the tibia. The extramedullary guide was placed onto the leg. The distal aspect was slid medial to adjust for position of center of ankle and stay in line with shaft of the tibia. Approximately 3-5 degrees of posterior slope was kept in the proximal cutting guide. The center of the guide was aligned with the PCL. The stylus was used to assess cut thickness. The medial side, most involved side, was set for a 6mm cut. This was then held in position and pinned into place with 2 additional pins and a cross pin for stability. The medial and lateral collateral ligaments were protected and the cut was performed. With this completed, it was assessed and noted to be of appropriate dimensions. The guide was removed. A spacer block was inserted and the knee was brought into extension. The 6mm spacer block provided full extension, without hyperextension and with stability of both the medial and lateral collateral ligaments was assessed. The pins from the femur and the tibia were then removed. The distal femur was then sized. The anterior stylus was placed onto the lateral ridge of the anterior femur. This indicated a size 9 femur. The external rotation of the guide was adjusted to 3 degrees to match the epicondylar axis, perpendicular to [place]?s line. The 4-in-1 cutting guide was the placed. The posterior medial femur cut was evaluated and appeared of good thickness. The spacer block was inserted underneath the cutting guide and due to some slight laxity in this position, which was balance, I did move the guide posteriorly 1.5 mm. The spacer block was reinserted and stability was confirmed in 90 degrees of flexion. An wendy wing was used to confirm appropriate position of the anterior cut to avoid notching. This cutting guide was ensured to be flush on the cut surface and then pinned into place with headed pins. While protecting the soft tissues, quad tendon, and collateral ligaments, the anterior and posterior cuts were performed with a saw. The central two pins were removed and the posterior and anterior chamfers were cut next. The notch-cutting guide was placed. This was pinned to lateralize the femoral component as much as possible while keeping it flush on the cut surface. This was then pinned into position. A reciprocating saw was used to make the notch cut. A rasp smoothed the cut surfaces. The medial and lateral menisci were removed. A trial femoral component was then inserted, impacted down to the cut surfaces, and the lug holes were drilled. A provisional trial tibial component was placed and the knee was brought through range of motion. There was noted to be excellent extension and flexion. There was no significant instability. The patella was tracking without thumbs. A size 6mm polyethylene component provided the best range of motion and stability with less than 2mm gapping with medial and lateral stress and full extension without significant hyperextension. The tibial cut surface was fully exposed. The tibia was then sized as a 10. The tibia had been previously marked during trialing to correspond to the center of the tibial component to help with rotation. The trial was aligned to this sharita, approximately rotated to the medial 1/3rd of the tibial tubercle. The trial was pinned into place. The tibia was prepared with a reamer and a keel punch and lug holes. The trial components were removed. The final components were opened on the back table. The periosteal and capsular tissues, especially posteriorly, around the knee were then systematically injected with a periarticular cocktail consisting of 246mg of Ropivacaine, 0.5mg of Epinephrine, 0.08mg of Clonidine, and 30mg of Ketorolac, diluted to 100cc. The cementless knee components were placed. Starting with the tibial component, the tibia was subluxed anteriorly and the lug holes of the component were lined up. The tibia was then impacted with an impactor and mallet until the tibial component was in contact with the tibia. The final polyethylene component was inserted. Then, the femoral component was inserted. The lug holes were aligned and the component was impacted into position. The knee was irrigated with Surgiphor Betadine solution. This was allowed to sit in the knee for 3 minutes and then it was irrigated out with saline. The capsule was then reapproximated with a No. 1 Vicryl at multiple locations. The capsule was finally closed with a No. 2 Stratafix, barbed suture. The second dosing of 1g TXA was started. Deep tissues were then reapproximated with 0 Vicryl and 2-0 Vicryl. The skin was closed with a running 3-0 Monocryl in a subcuticular fashion. The wound was covered and the final dressing was placed at the end of the contralateral side. RIGHT KNEE: With the knee in some flexion, a midline incision was made overlying the knee. Full thickness skin flaps were raised once the extensor mechanism was encountered. These were raised medially and laterally. Any bleeding was controlled with electrocautery. Once the extensor mechanism was fully exposed, a medial parapatellar arthrotomy was performed in a flexed position. All bleeding from the arthrotomy and the geniculate arteries was coagulated. A medial subperiosteal peel was performed with electrocautery to the midcoronal plane. The fat pad was removed while keeping the patellar tendon protected. The anterior distal femur synovium was removed for later visualization. The ACL and PCL were resected and the anterior horn of the lateral meniscus was transected. The knee was then flexed with the patella everted. Large osteophytes from the tibia were removed. Large osteophytes from the femur were removed. Using a step drill, and based on preoperative templating, the femoral canal was entered. This was done with a step drill without any difficulty. The intramedullary distal femoral cut guide was inserted, set to a 5 degree valgus cut and 9mm cut thickness. The distal femoral cut guide was then held in position and pinned. With the soft tissues protected, the distal cut was performed. This was passed over a few times to ensure a planar cut. I then turned attention to the tibia. The extramedullary guide was placed onto the leg. The distal aspect was slid medial to adjust for position of center of ankle and stay in line with shaft of the tibia. Approximately 3-5 degrees of posterior slope was kept in the proximal cutting guide. The center of the guide was aligned with the PCL. The stylus was used to assess cut thickness. The medial side, most involved side, was set for a 6mm cut. This was then held in position and pinned into place with 2 additional pins and a cross pin for stability. The medial and lateral collateral ligaments were protected and the cut was performed. With this completed, it was assessed and noted to be of appropriate dimensions. The guide was removed. A spacer block was inserted and the knee was brought into extension. The 6mm spacer block provided full extension, without hyperextension and with stability of both the medial and lateral collateral ligaments was assessed. The pins from the femur and the tibia were then removed. The distal femur was then sized. The anterior stylus was placed onto the lateral ridge of the anterior femur. This indicated a size 9 femur. The external rotation of the guide was adjusted to 3 degrees to match the epicondylar axis, perpendicular to [place]?s line. The 4-in-1 cutting guide was the placed. Similar to the contralateral side, the cutting block was moved posteriorly 1.5 mm. The spacer block was inserted underneath the cutting guide and stability was confirmed in 90 degrees of flexion. An wendy wing was used to confirm appropriate position of the anterior cut to avoid notching. This cutting guide was ensured to be flush on the cut surface and then pinned into place with headed pins. While protecting the soft tissues, quad tendon, and collateral ligaments, the anterior and posterior cuts were performed with a saw. The central two pins were removed and the posterior and anterior chamfers were cut next. The notch-cutting guide was placed. This was pinned to lateralize the femoral component as much as possible while keeping it flush on the cut surface. This w as then pinned into position. A reciprocating saw was used to make the notch cut. A rasp smoothed the cut surfaces. The medial and lateral menisci were removed. A trial femoral component was then inserted, impacted down to the cut surfaces, and the lug holes were drilled. A provisional trial tibial component was placed and the knee was brought through range of motion. There was noted to be excellent extension and flexion. There was no significant instability. The patella was tracking without thumbs. A size 6mm polyethylene component provided the best range of motion and stability with less than 2mm gapping with medial and lateral stress and full extension without significant hyperextension. The tibial cut surface was fully exposed. The tibia was then sized as a 10. The tibia had been previously marked during trialing to correspond to the center of the tibial component to help with rotation. The trial was aligned to this sharita, approximately rotated to the medial 1/3rd of the tibial tubercle. The trial was pinned into place. The tibia was prepared with a reamer and a keel punch and lug holes. The trial components were removed. The final components were opened on the back table. The periosteal and capsular tissues, especially posteriorly, around the knee were then systematically injected with a periarticular cocktail consisting of 246mg of Ropivacaine, 0.5mg of Epinephrine, 0.08mg of Clonidine, and 30mg of Ketorolac, diluted to 100cc. On the back table, with the implants opened, the cement was mixed. One batch of high viscosity cement was prepared with vacuum assistance. After the cement was ready a small amount was placed on the cut surface of the patella and the patellar button was clamped into position and held. While the cement was hardening, the cementless knee components were placed. Starting with the tibial component, the tibia was subluxed anteriorly and the lug holes of the component were lined up. The tibia was then impacted with an impactor and mallet until the tibial component was in contact with the tibia. The final polyethylene component was inserted. Then, the femoral component was inserted. The lug holes were aligned and the component was impacted into position. The knee was irrigated with Surgiphor Betadine solution. This was allowed to sit in the knee for 3 minutes and then it was irrigated out with saline. The capsule was then reapproximated with a No. 1 Vicryl at multiple locations. The capsule was finally closed with a No. 2 Stratafix, barbed suture. Deep tissues were then reapproximated with 0 Vicryl and 2-0 Vicryl. The skin was closed with a running 3-0 Monocryl in a subcuticular fashion. Both incisions were then reinforced with skin glue and Exofin mesh. A Mepilex silver dressing was applied along with a [id number] SAI wrap to both knees. A CryoCuff was applied. Yony was transferred to the hospital bed without difficulty an suffering no apparent complication. He has a good prognosis. Physical therapy will start today and without restrictions, weight-bearing as tolerated. Aspirin 81mg BID will be used for DVT prophylaxis. Date of Procedure: 04/08/25
[2025-04-08] MEDS: oxyCODONE 5 MG TAB PO (12:05)
--- NOTE | 2025-04-08 12:40 | IN_ITS ---
PT Notes Visit Reasons: B/L TKR Physical Therapy Day Surgery Initial Evaluation Date: 04/08/2025 Referring Doctor: [] PT Orders: PT CONSULT: [] Precautions: [] Patient Profile/Admitting Diagnosis: [] PMHX: Osteoarthritis of both knees (Chronic) Most recent Depo-Medrol injection: 11/06/2024Migraine headache (Chronic) RarelyBilateral chronic knee pain (Acute) Tubular adenoma of colon (Acute) Medical History (Updated 01/05/25 @ 14:56 by Delmi Jarrett) History of rectal fissure Chondrocalcinosis of left knee Chondrocalcinosis of right knee Degenerative joint disease of right knee Left knee DJD Tinea versicolor Bronchospasm Spasm of muscle of lower back Acute lateral meniscus tear of left knee (07/30/17) Surgical History (Updated 04/18/22 @ 14:01 by Sabina Sanchez RN) History of colonoscopy (~03/2022) History of dental surgery Hx of shoulder surgery rightHx of knee surgery Hx of thumb surgery Right Social History/Home Situation: Patient resides in single-family home with his with ramp to enter. Patient utilizes 4 wheeled walker for ambulation and transfers. He reports independent [employer]s provides transportation and meals. Patient independent med management with a pillbox. Equipment Owned/DME: Four-wheel walker, 2 scooters, grab bar near the toilet, lift assist chair Subjective: Patient reports feeling stronger however still weak. States he is coughing less. Reports wound under Brando wrap to right lower extremity wound is located on his [place] per patient. Objective: [] General Observation: Patient presents reclined in chair with bilateral lower extremities externally rotated IV infusing right anterior chest. Right lower extremity Brando wrapped. Mental Status: Alert and oriented x 4, cooperative, pleasant, agreeable to participate in evaluation. Pain: ROM: [] Right Upper Extremity: [] Left Upper Extremity: [] Right Lower Extremity: [] Left Lower Extremity: [] Strength: [] Right Upper Extremity: [] Left Upper Extremity: [] Right Lower Extremity: [] Left Lower Extremity: [] Sensation: [] Bed Mobility/Transfers: [] Supine to sit [] Sit to stand [] Stand to sit [] Bed to chair [] Gait: [] Balance: [] Static Sitting: [] Dynamic Sitting: [] Static Standing: [] Dynamic Standing: [] Special Tests: [] Mobility Limitations Standardized Measure [] [facility] AM-PAC 6 clicks Basic Mobility Inpatient Short Form: [] Raw Score: [] CMS Score: [] Informed Consent/Education: Patient instructed in purpose of PT consult. Packet containing TKA exercise protocol has been given to patient. Education and training on initial set of exercises that can be done at home have been completed with patient. Assessment: Patient presents with clinical signs and symptoms consistent with current/admitting diagnoses that have resulted to mobility limitations, gait instability, generalized weakness, and impairment of motor control as demonstrated by the following impairment level findings: 1. Decreased strength to B knee major muscle groups 2. Impaired standing balance 3. Limitation of joint range of motion in B knees Impairments are contributing to the following functional limitations: 1. Inability to safely ambulate without assistive device 2. Increase completion time for mobility ADL performance 3. Increased fall risk Patient is assessed as a [] complexity based on the following: History: []-year-old [] with impairment level findings, functional limitations, and past medical history as indicated above Examination: Demonstrable impairment in strength, balance, and mobility level with underlying impairments and functional limitations as documented above Presentation: [] Decision Making: [] Goals: N/A. PT evaluation and 1-2 treatment sessions only for functional mobility training using recommended AD and for HEP instruction. Plan of Care/Treatment Plan: N/A. PT evaluation and 1-2 treatment session only for functional mobility training using recommended AD and for HEP instruction. DISCHARGE RECOMMENDATIONS: [] TREATMENT CODE/TIME: [] Thank you for the opportunity to participate in the care of this patient. [place] Jessica PT [facility]
--- NOTE | 2025-04-08 12:54 | IN_ITS ---
PT Notes Visit Reasons: B/L TKR Physical Therapy Day Surgery Initial Evaluation Date: 04/08/2025 Referring Doctor: ALOK Schofield PT Orders: PT CONSULT: Eval/Treat Precautions: WBAT on B LE with AD. Patient Profile/Admitting Diagnosis: James is a 54-year-old male with degenerative joint disease of both knees and is status post bilateral total knee arthroplasties on postoperative day 0. PMHX: All Active Problems (Updated 01/05/25 @ 14:56 by Delmi Jarrett) Toe pain, right (Acute) Osteoarthritis of both knees (Chronic) Most recent Depo-Medrol injection: 11/06/2024 Migraine headache (Chronic) RarelyBilateral chronic knee pain (Acute) Tubular adenoma of colon (Acute) Medical History (Updated 01/05/25 @ 14:56 by Delmi Jarrett) History of rectal fissure Chondrocalcinosis of left knee Chondrocalcinosis of right knee Degenerative joint disease of right knee Left knee DJD Tinea versicolor Bronchospasm Spasm of muscle of lower back Acute lateral meniscus tear of left knee (07/30/17) Surgical History (Updated 04/18/22 @ 14:01 by Sabina Sanchez RN) History of colonoscopy (~03/2022) History of dental surgery Hx of shoulder surgery rightHx of knee surgery Hx of thumb surgery Right Social History/Home Situation: Lives alone in a private home with . 8 DIANE with one rail. Independent with all aspects of ADLs prior to surgery. 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 Equipment Owned/DME: None Subjective: Complained of numbness in the crotch area, incontinent of urine due to post operative status. Reported lightheadedness 5 steps in to walking using FWW. For the second visit, patient complained of lightheadedness again but of less intensity, he was able to get back up and walk back to room from where the stairs are with no issue. Objective: General Observation: Patient was resting in bed with SAI wraps to B legs. present in room. Mental Status: A and O x 4 Pain: 3/10 in B knees at rest and with movement; for the second visit patient reported 5/10 in the R knee ROM: Right Lower Extremity: Hip flexion WFL. Hip abduction WFL. Knee flexion 20 degrees to 90 degrees. Knee extension -20 degrees. Ankle dorsiflexion WFL. Ankle plantarflexion WFL. Left Lower Extremity: Hip flexion WFL. Hip abduction WFL. Knee flexion 15 degrees to 90 degrees. Knee extension -15 degrees ankle dorsiflexion WFL. Ankle plantarflexion WFL. Strength: Right Lower Extremity: Hip flexors 4-/5. Hip abductors 4-/5. Knee flexors 3-/5. Knee extensors 3-/5. Ankle dorsiflexors 5/5. Ankle plantarflexors 5/5. Left Lower Extremity: Hip flexors 4-/5. Hip abductors 4-/5. Knee flexors 3-/5. Knee extensors 3-/5. Ankle dorsiflexors 5/5. Ankle plantarflexors 5/5. Sensation: Intact as to pain and light pressure in bilateral lower extremities Bed Mobility/Transfers: Minimal cueing provided for use of B hands as needed for support, movement sequence, AD management, and posture to reduce fall risk and minimize pain report Supine to sit stand by assist Sit to stand contact guard assist with FWW Stand to sit stand by assist with FWW Bed to chair minimal assist of 2. Patient needed to be immediately seated onto bedside recliner as he went pale and reported worsening lightheadedness. Nurse Kyra assited for safety. For the second visit, patient was able to do transfer with just stand by assist using FWW. Gait: Deferred for now, patient became very lightheaded with decreased level of alertness. Will reassess in half an hour or so. For the second visit, patient was able to cover 100 feet + 50 feet of level surface ambulation using his front-wheeld walker with just stand by assist and minimal verbal cueing for posture, AD management, and correct/safe gait pattern to minimize pain report and reduce fall risk. Stairs: Deferred for now, patient became very lightheaded with decreased level of alert ness. Will reassess in half an hour or so. For the second visit, patient was able to negotiate 3 x 4-inch steps and 2 x 6-inch steps while holding onto B rails for support with minimal verbal cueing provided for hndpalcement, limb movement sequence and posture to minimize pain report and reduce fall risk. Balance: Static Sitting: Normal Dynamic Sitting: Normal Static Standing: Fair Dynamic Standing: Fair Special Tests: Mobility Limitations Standardized Measure [employer] AM-PAC 6 clicks Basic Mobility Inpatient Short Form: Raw Score: 22 CMS Score: 21% deficit Informed Consent/Education: Patient instructed in purpose of PT consult. Packet containing TKA exercise protocol has been given to patient. Education and training on initial set of exercises that can be done at home have been completed with patient. Trained patient with correct performance of exercises below to maximize motor control, joint flexibility, soft tissue extensibility of the B knee musculature: Access Code: [email or web address] URL: [email or web address] Date: 04/08/2025 Prepared by: Kalyn Al Exercises - Supine Quad Set - 1 x daily - 7 x weekly - 1 sets - 10 reps - 5 hold - Supine Heel Slide - 1 x daily - 7 x weekly - 1 sets - 10 reps - 5 hold - Supine Ankle Pumps - 1 x daily - 7 x weekly - 1 sets - 10 reps - 5 hold - Small Range Straight Leg Raise - 1 x daily - 7 x weekly - 1 sets - 10 reps - 5 hold - Seated March - 1 x daily - 7 x weekly - 1 sets - 10 reps - 5 hold Assessment: Patient's performance was limited by report of lightheadedness and hypotensive episode but was able to complete mobility assessment and functional mobility training during the second visit. Patient will have the support of as he recovers at home. Pain more on the R than L. Patient presents with clinical signs and symptoms consistent with current/admitting diagnoses that have resulted to mobility limitations, gait instability, generalized weakness, and impairment of motor control as demonstrated by the following impairment level findings: 1. Decreased strength to B knee major muscle groups 2. Impaired standing balance 3. Limitation of joint range of motion in B knee Impairments are contributing to the following functional limitations: 1. Inability to safely ambulate without assistive device 2. Increase completion time for mobility ADL performance 3. Increased fall risk Patient is assessed as a [id number] moderate complexity based on the following: History: 54-year-old male with impairment level findings, functional limitations, and past medical history as indicated above Examination: Demonstrable impairment in strength, balance, and mobility level with underlying impairments and functional limitations as documented above Presentation: Evolving Decision Makin moderate complexity Goals: N/A. PT evaluation and 1-2 treatment sessions only for functional mobility training using recommended AD and for HEP instruction. Plan of Care/Treatment Plan: N/A. PT evaluation and 1-2 treatment session only for functional mobility training using recommended AD and for HEP instruction. DISCHARGE RECOMMENDATIONS: Home when medically cleared by orthopedic surgeon. Recommend outpatient PT services in order to optimize functional mobility outcomes and facilitate return to independent community ambulation without an assistive device. TREATMENT CODE/TIME: 79683 x 20 minutes for 1 unit, 44445 x 44 minutes for 3 units during 2 visits (12:54-13:27 and 14:50-15:21). Thank you for the opportunity to participate in the care of this patient. Kalyn Al PT, DPT, CLT [facility] [place], [place]
--- NOTE | 2025-04-08 13:16 | W.ANESPOSTOP ---
Postoperative Evaluation Date, Time and Location Date Performed: 04/08/25 Time Performed: 13:17 Patient Location: Day Surgery Unit Vital Signs Most Recent Imported Vital Signs: Most Recent Vital Signs Temp Pulse Resp BP Pulse Ox 36.2 C L 69 16 134/98 H 98 04/08/25 12:09 04/08/25 12:09 04/08/25 12:09 04/08/25 12:09 04/08/25 12:09 Pain Score Most Recent Pain Score: Most Recent Pain Score Pain Level 8 04/08/25 12:09 Assessment Mental Status: Awake (Alert & Oriented to Patient Baseline) Airway and Respiratory Function: Patent airway with normal (patient baseline) respiratory exam Cardiovascular Function: Hemodynamically Stable Hydration Status: Adequately Hydrated Nausea & Vomiting: No Nausea or Vomiting Pain: Pain is tolerable per patient Peripheral Nerve Block: Regional nerve block not resolved at time of post operative discharge
--- NOTE | 2025-04-11 10:22 | NUR.NOTE ---
[facility] called to clarify med order on patient. Advised them that orthopedics had prescribed a med and we could not answer their question. Transferred them to access in the hopes that they could page the ortho orthopedic surgeon to answer their questions.
== END 2025-04-08 16:30 | disposition home or self-care (01) ==
PROVIDERS: PCP Nurse Practitioner Family; Visit Provider Student in an Organized Health Care Education/Training Program
PROC: 0SRC0JZ Replacement of Right Knee Joint with Synthetic Substitute, Open Approach (ICD-10-PCS; CPT 27447; principal; 2025-04-08 07:30)
DX: M17.0 Bilateral primary osteoarthritis of knee (principal); G89.18 Other acute postprocedural pain
CPT/HCPCS: 27447; 64447; 97162; 97530; C1776; J0166; J0665; J0666; J0690; J1100; J2003; J2250; J2405; J2704; J3010

== ENCOUNTER 2025-04-23 10:22 | Outpatient (CLI) | payer SELFPAY ==
--- NOTE | 2025-04-23 09:45 | DI.RAD_ITS ---
Exam(s) XR KNEE LT 1V XR STANDING ALIGNMENT XR KNEE RT 1V EXAM: XR STANDING ALIGNMENT and XR knee bilateral 1 V CLINICAL HISTORY: 1st post op S/P BILAT TKAs. TECHNIQUE: 2D digital imaging was performed. Six images were obtained. COMPARISON: CR XR KNEE LT 4V AP,LAT,JOB,PAT from 11/06/2024 CR XR KNEE RT 4V AP,LAT,JOB,PAT from 11/06/2024 CR XR STANDING ALIGNMENT from 03/30/2025 FINDINGS: BONES: The hips are well maintained. Since the prior examination, there has been placement of bilateral knee arthroplasties. The orthopedic hardware is in good position. There are osteophytes seen at the posterior patella. The ankles are well maintained.There is no significant leg length discrepancy. SOFT TISSUE: Normal. IMPRESSION: Interval placement of bilateral total knee arthroplasties. The orthopedic hardware appears in good position. DATA REPOSITORY: RADIATION DOSE DELIVERED:
== END 2025-04-23 10:23 | disposition home or self-care (01) ==
LOC: DIORS 10:22
PROVIDERS: PCP Nurse Practitioner Family; Visit Provider Physician Assistant
DX: Z96.653 Presence of artificial knee joint, bilateral (principal)
CPT/HCPCS: 73560; 77073